=== PATIENT | male | born 1975 | race Caucasian/White ===

== ENCOUNTER 2023-02-22 08:31 | Outpatient (CLI) | payer OTHER, SELFPAY | END 2023-02-22 08:32 | disposition home or self-care (01) | LOC: NFLDREF 02-23 07:57 | PROVIDERS: PCP Physician Assistant Medical; Referring Provider Physician Assistant Medical; Visit Provider Emergency Medicine | DX: Z00.00 Encounter for general adult medical examination without abnormal findings (principal); E03.9 Hypothyroidism, unspecified; I10 Essential (primary) hypertension; N52.9 Male erectile dysfunction, unspecified; Z12.5 Encounter for screening for malignant neoplasm of prostate; C73 Malignant neoplasm of thyroid gland | CPT/HCPCS: 80053; 80061; 84153; 84443 ==

== ENCOUNTER 2023-02-27 13:29 | Outpatient (CLI) | payer OTHER, SELFPAY | END 2023-02-27 13:30 | disposition home or self-care (01) | LOC: LKVREF 13:30 | PROVIDERS: PCP Physician Assistant Medical; Visit Provider Emergency Medicine | DX: Z00.00 Encounter for general adult medical examination without abnormal findings (principal); K62.5 Hemorrhage of anus and rectum | CPT/HCPCS: 85730 ==